=== PATIENT | female | born 1970 | race Caucasian/White ===

== ENCOUNTER → 2017-01-09 | Outpatient (CLI) | payer OTHER | LOC: LAB 09:56 | DX: Z31.69 Encounter for other general counseling and advice on procreation (principal); N97.8 Female infertility of other origin | CPT/HCPCS: 36415; 83001; 83002; 83520 ==

== ENCOUNTER 2021-08-29 22:03 | Inpatient (IN) | payer OTHER ==
[~2021-08-29] VITALS: Ht 157.5 cm; Wt 113.4 kg
[2021-08-29 22:32] LABS: HEMOGLOBIN 14.3 gm/dl (12.3-15.3); RED BLOOD COUNT 4.55 M/UL (4.00-5.10); WHITE BLOOD COUNT 8.9 K/UL (4.5-11.0)
[2021-08-29 22:55] LABS: BUN/CREATININE RATIO 13 (0-10)
[2021-08-30 04:38] LABS: HEMOGLOBIN 13.8 gm/dl (12.3-15.3); RED BLOOD COUNT 4.47 M/UL (4.00-5.10); WHITE BLOOD COUNT 7.3 K/UL (4.5-11.0)
[2021-08-30 05:03] LABS: BUN/CREATININE RATIO 13 (0-10)
[2021-08-30] MEDS ORDERED: ZOFRAN ODT 4 MG4 MG SL (11:52)
[2021-08-30] MEDS ORDERED: FAMOTIDINE40 MG PO (11:53)
[2021-08-30] MEDS ORDERED: LANTUS SOL100 UNIT/1 INJ (11:54)
[2021-08-30] MEDS ORDERED: HUMALOG100 UNIT/3 SC (11:55)
[2021-08-30] MEDS ORDERED: MELOXICAM15 MG PO (11:55)
[2021-08-30] MEDS ORDERED: GABAPENTIN800 MG PO (11:55)
[2021-08-30] MEDS ORDERED: HYDROCHLOROTHIA25 MG PO (11:56)
[2021-08-30] MEDS ORDERED: VITAMIN B-121000 MCG PO (11:56)
[2021-08-30] MEDS ORDERED: LEVOTHYROXINE25 MCG PO (11:57)
[2021-08-30] MEDS ORDERED: LISINOPRIL2.5 MG PO (11:57)
[2021-08-30] MEDS ORDERED: OMEPRAZOLE20 MG PO (11:57)
[2021-08-30] MEDS ORDERED: TIZANIDINE HCL4 MG PO (11:58)
[2021-08-30] MEDS ORDERED: ASPIRIN EC81 MG PO (11:58)
[2021-08-31 03:33] LABS: HEMOGLOBIN 14.4 gm/dl (12.3-15.3); RED BLOOD COUNT 4.64 M/UL (4.00-5.10)
[2021-08-31 03:36] LABS: WHITE BLOOD COUNT 4.9 K/UL (4.5-11.0)
[2021-08-31 04:06] LABS: BUN/CREATININE RATIO 27 (0-10)
--- NOTE | 2021-08-31 20:15 | NUR ---
PT REPORTS SHE IS VERY ANXIOUS ABOUT WEARING HER BIPAP MASK AND JUST WANTS TO CALL HER MOTHER. PT SWITCHED TO [employer] LONG ENOUGH TO CALL HER MOTHER AND GET HER HAIR BRAIDED SO THAT IT IS OUT OF THE WAY OF HER MASK. CALLED [facility] AND RECIEVED ONE TIME ORDER FOR [facility]I.
--- NOTE | 2021-08-31 22:19 | NUR ---
PTS OXYGEN LEVEL DIPS TO 78% ON 100% BIPAP BUT THEN COMES BACK UP TO 92%. UPON ENTERING ROOM SHE IS ASLEEP AND MASK IN PLACE. NOTIFIED DR LIGHT OF FINDINGS NO NEW ORDERS AT THIS TIME.
--- NOTE | 2021-08-31 22:52 | NUR ---
PTS HR IS [address] LIGHT BP 140/56 02 90% ON BIPAP 100% OXYGEN.
--- NOTE | 2021-08-31 23:17 | NUR ---
DR LIGHT ON FLOOR TO ASSESS PT.
[2021-09-01 09:04] LABS: HEMOGLOBIN 15.6 gm/dl (12.3-15.3)
[2021-09-01 09:08] LABS: WHITE BLOOD COUNT 6.4 K/UL (4.5-11.0)
[2021-09-01 09:29] LABS: BUN/CREATININE RATIO 26 (0-10)
[2021-09-02 04:12] LABS: HEMOGLOBIN 14.3 gm/dl (12.3-15.3); RED BLOOD COUNT 4.64 M/UL (4.00-5.10); WHITE BLOOD COUNT 5.8 K/UL (4.5-11.0)
[2021-09-02 04:35] LABS: BUN/CREATININE RATIO 22 (0-10)
[2021-09-03 03:37] LABS: HEMOGLOBIN 15.1 gm/dl (12.3-15.3); RED BLOOD COUNT 4.86 M/UL (4.00-5.10)
[2021-09-03 03:42] LABS: WHITE BLOOD COUNT 7.5 K/UL (4.5-11.0)
[2021-09-03 04:08] LABS: BUN/CREATININE RATIO 22 (0-10)
[2021-09-04 04:02] LABS: HEMOGLOBIN 15.9 gm/dl (12.3-15.3); RED BLOOD COUNT 5.15 M/UL (4.00-5.10)
[2021-09-04 04:21] LABS: BUN/CREATININE RATIO 27 (0-10)
--- NOTE | 2021-09-04 13:55 | NUR ---
PT ARRIVED TO ICU @ 1210 PT STABLE 90% BIPAP SPO2 93%, PT ASSESSED SEE DOCUMENTATION WCTM
[2021-09-05 05:42] LABS: HEMOGLOBIN 15.9 gm/dl (12.3-15.3); RED BLOOD COUNT 5.11 M/UL (4.00-5.10); WHITE BLOOD COUNT 12.1 K/UL (4.5-11.0)
[2021-09-05 06:00] LABS: BUN/CREATININE RATIO 28 (0-10)
[2021-09-06 04:26] LABS: HEMOGLOBIN 15.1 gm/dl (12.3-15.3); RED BLOOD COUNT 4.95 M/UL (4.00-5.10); WHITE BLOOD COUNT 11.1 K/UL (4.5-11.0)
[2021-09-06 04:34] LABS: BUN/CREATININE RATIO 27 (0-10)
[2021-09-07 04:22] LABS: RED BLOOD COUNT 5.02 M/UL (4.00-5.10)
[2021-09-07 04:25] LABS: WHITE BLOOD COUNT 14.7 K/UL (4.5-11.0)
[2021-09-07 04:58] LABS: BUN/CREATININE RATIO 28 (0-10)
[2021-09-08 05:42] LABS: HEMOGLOBIN 14.9 gm/dl (12.3-15.3); RED BLOOD COUNT 5.04 M/UL (4.00-5.10); WHITE BLOOD COUNT 12.8 K/UL (4.5-11.0)
[2021-09-08 06:25] LABS: BUN/CREATININE RATIO 21 (0-10)
[2021-09-09 11:38] LABS: HEMOGLOBIN 15.4 gm/dl (12.3-15.3); RED BLOOD COUNT 5.08 M/UL (4.00-5.10)
[2021-09-09 11:44] LABS: BUN/CREATININE RATIO 24 (0-10)
[2021-09-10 05:59] LABS: HEMOGLOBIN 14.9 gm/dl (12.3-15.3); RED BLOOD COUNT 4.8 M/UL (4.00-5.10)
[2021-09-11 05:57] LABS: HEMOGLOBIN 11.4 gm/dl (12.3-15.3); RED BLOOD COUNT 3.74 M/UL (4.00-5.10); WHITE BLOOD COUNT 43.7 K/UL (4.5-11.0)
[2021-09-11 12:35] LABS: WHITE BLOOD COUNT 38.2 K/UL (4.5-11.0)
[2021-09-12 05:51] LABS: HEMOGLOBIN 11.4 gm/dl (12.3-15.3); RED BLOOD COUNT 3.71 M/UL (4.00-5.10)
[2021-09-12 06:09] LABS: WHITE BLOOD COUNT 34.1 K/UL (4.5-11.0)
[2021-09-13 07:38] LABS: HEMOGLOBIN 10.5 gm/dl (12.3-15.3); RED BLOOD COUNT 3.43 M/UL (4.00-5.10)
[2021-09-13 07:40] LABS: WHITE BLOOD COUNT 32.8 K/UL (4.5-11.0)
[2021-09-13 12:09] LABS: HBSAG SCREEN Negative (Negative); HEP A AB, IGM Negative (Negative); HEP B CORE AB, IGM Negative (Negative); HEP C VIRUS AB <0.1 (0.0-0.9)
[2021-09-14 08:01] LABS: HEMOGLOBIN 10.7 gm/dl (12.3-15.3); RED BLOOD COUNT 3.56 M/UL (4.00-5.10)
[2021-09-14 08:04] LABS: WHITE BLOOD COUNT 30.8 K/UL (4.5-11.0)
[2021-09-15 05:38] LABS: HEMOGLOBIN 11.3 gm/dl (12.3-15.3); RED BLOOD COUNT 3.67 M/UL (4.00-5.10)
[2021-09-15 05:42] LABS: WHITE BLOOD COUNT 38.8 K/UL (4.5-11.0)
[2021-09-16 05:38] LABS: HEMOGLOBIN 10.5 gm/dl (12.3-15.3); RED BLOOD COUNT 3.39 M/UL (4.00-5.10)
[2021-09-16 05:57] LABS: WHITE BLOOD COUNT 39.9 K/UL (4.5-11.0)
[2021-09-17 05:58] LABS: HEMOGLOBIN 10.4 gm/dl (12.3-15.3); RED BLOOD COUNT 3.4 M/UL (4.00-5.10)
[2021-09-17 06:13] LABS: WHITE BLOOD COUNT 35.1 K/UL (4.5-11.0)
[2021-09-17 11:37] LABS: HEMOGLOBIN 10.3 gm/dl (12.3-15.3); RED BLOOD COUNT 3.28 M/UL (4.00-5.10)
[2021-09-17 11:46] LABS: WHITE BLOOD COUNT 42.1 K/UL (4.5-11.0)
[2021-09-18 06:18] LABS: HEMOGLOBIN 10.8 gm/dl (12.3-15.3); RED BLOOD COUNT 3.56 M/UL (4.00-5.10)
[2021-09-18 06:54] LABS: WHITE BLOOD COUNT 39.9 K/UL (4.5-11.0)
== END 2021-09-18 18:24 | disposition expired | DRG 207 ==
LOC: ER1 22:03 → CDU 23:47 → PROG CARE 23:47 → CCU 23:47 → PROG CARE 08-30 14:20 → CCU 09-04 12:47
PROVIDERS: Internal Medicine; Internal Medicine Critical Care Medicine; Internal Medicine Infectious Disease; Internal Medicine Nephrology; Registered Nurse; Student in an Organized Health Care Education/Training Program; ADMIT Internal Medicine
PROC: XW033E5 Introduction of Remdesivir Anti-infective into Peripheral Vein, Percutaneous Approach, New Technology Group 5 (ICD-10-PCS; 2021-08-29)
PROC: 3E0333Z Introduction of Anti-inflammatory into Peripheral Vein, Percutaneous Approach (ICD-10-PCS; principal; 2021-08-30)
PROC: 5A0945A Assistance with Respiratory Ventilation, 24-96 Consecutive Hours, High Flow/Velocity Cannula (ICD-10-PCS; 2021-08-30)
PROC: XW033H5 Introduction of Tocilizumab into Peripheral Vein, Percutaneous Approach, New Technology Group 5 (ICD-10-PCS; 2021-08-30)
PROC: 8E0ZXY6 Isolation (ICD-10-PCS; 2021-08-30)
PROC: 5A09357 Assistance with Respiratory Ventilation, Less than 24 Consecutive Hours, Continuous Positive Airway Pressure (ICD-10-PCS; 2021-08-31)
PROC: B24BZZ4 Ultrasonography of Heart with Aorta, Transesophageal (ICD-10-PCS; 2021-09-01)
PROC: 0DH67UZ Insertion of Feeding Device into Stomach, Via Natural or Artificial Opening (ICD-10-PCS; 2021-09-01)
PROC: 3E0G76Z Introduction of Nutritional Substance into Upper GI, Via Natural or Artificial Opening (ICD-10-PCS; 2021-09-01)
PROC: 5A09457 Assistance with Respiratory Ventilation, 24-96 Consecutive Hours, Continuous Positive Airway Pressure (ICD-10-PCS; 2021-09-04)
PROC: 5A1955Z Respiratory Ventilation, Greater than 96 Consecutive Hours (ICD-10-PCS; 2021-09-09)
PROC: 3E033XZ Introduction of Vasopressor into Peripheral Vein, Percutaneous Approach (ICD-10-PCS; 2021-09-09)
PROC: 03HY32Z Insertion of Monitoring Device into Upper Artery, Percutaneous Approach (ICD-10-PCS; 2021-09-09)
PROC: 02HV33Z Insertion of Infusion Device into Superior Vena Cava, Percutaneous Approach (ICD-10-PCS; 2021-09-09)
PROC: B548ZZA Ultrasonography of Superior Vena Cava, Guidance (ICD-10-PCS; 2021-09-09)
PROC: 0BH17EZ Insertion of Endotracheal Airway into Trachea, Via Natural or Artificial Opening (ICD-10-PCS; 2021-09-09)
PROC: 02HV33Z Insertion of Infusion Device into Superior Vena Cava, Percutaneous Approach (ICD-10-PCS; 2021-09-11)
PROC: B548ZZA Ultrasonography of Superior Vena Cava, Guidance (ICD-10-PCS; 2021-09-11)
PROC: 5A1D70Z Performance of Urinary Filtration, Intermittent, Less than 6 Hours Per Day (ICD-10-PCS; 2021-09-12)
PROC: 5A1D70Z Performance of Urinary Filtration, Intermittent, Less than 6 Hours Per Day (ICD-10-PCS; 2021-09-13)
PROC: 5A1D70Z Performance of Urinary Filtration, Intermittent, Less than 6 Hours Per Day (ICD-10-PCS; 2021-09-15)
PROC: 5A1D70Z Performance of Urinary Filtration, Intermittent, Less than 6 Hours Per Day (ICD-10-PCS; 2021-09-16)
PROC: 5A1D70Z Performance of Urinary Filtration, Intermittent, Less than 6 Hours Per Day (ICD-10-PCS; 2021-09-17)
DX: U07.1 COVID-19 (principal); J80 Acute respiratory distress syndrome; E11.10 Type 2 diabetes mellitus with ketoacidosis without coma; N17.0 Acute kidney failure with tubular necrosis; J15.9 Unspecified bacterial pneumonia; A41.89 Other specified sepsis; D65 Disseminated intravascular coagulation [defibrination syndrome]; R65.21 Severe sepsis with septic shock; J12.82 Pneumonia due to coronavirus disease 2019; Z68.42 Body mass index [BMI] 45.0-49.9, adult; I48.91 Unspecified atrial fibrillation; D64.9 Anemia, unspecified; I45.10 Unspecified right bundle-branch block; E87.5 Hyperkalemia; I11.0 Hypertensive heart disease with heart failure; E78.5 Hyperlipidemia, unspecified; E66.01 Morbid (severe) obesity due to excess calories; E11.65 Type 2 diabetes mellitus with hyperglycemia; K72.90 Hepatic failure, unspecified without coma; Z90.49 Acquired absence of other specified parts of digestive tract; Z79.4 Long term (current) use of insulin; Z82.49 Family history of ischemic heart disease and other diseases of the circulatory system; Z79.01 Long term (current) use of anticoagulants; Z99.2 Dependence on renal dialysis; Z79.2 Long term (current) use of antibiotics; Z79.82 Long term (current) use of aspirin; Z23 Encounter for immunization
CPT/HCPCS: ECHO; 31500; 36415; 36600; 71045; 71046; 74018; 76700; 80048; 80053; 80074; 80202; 82550; 82553; 82803; 82962; 83010; 83036; 83605; 83615; 83690; 83735; 83880; 84478; 84484; 85007; 85025; 85027; 85045; 85384; 85610; 85652; 85730; 86140; 87040; 87070; 87081; 87205; 90935; 90937; 93005; 93306; 93970; 94002; 94003; 94640; 94660; 94664; 94760; 96374; 96375; 99285; A6212; C1894; C9113; J0248; J0692; J1100; J1160; J1644; J1650; J1720; J1940; J1956; J2185; J2248; J2370; J2704; J2765; J3370; J7030; J7040; J7042; J7050; J7070; P9047; Q0249; Q9967; U0002